=== PATIENT | male | born 1955 | race Caucasian/White ===

== ENCOUNTER → 2017-03-25 13:51 | Outpatient (CLI) | payer MEDICAID, SELFPAY ==
--- NOTE | 2017-03-25 13:54 | RAD_ITS ---
STUDY: X-RAY - PELVIS AND LEFT HIP REASON FOR EXAM: Male, 61 years old. Follow-up proximal femoral fracture. TECHNIQUE: Radiological exam, hip, unilateral, with pelvis when performed; 2 or 3 views. COMPARISON: Prior pelvis and hip films of February 11, 2017 FINDINGS: There is a non-specific bowel gas pattern. Normal visualized soft tissue structures. Normal bilateral iliac wings, sacroiliac joints and visualized sacrum. Normal bilateral superior and inferior pubic rami. Normal pubic symphysis. Normal bilateral ischial tuberosities. No change in the alignment of the fracture of the proximal femoral diaphysis and lesser trochanter. Increasing callus across the fracture site. The femoral head and neck lag screw and intramedullary karla are unchanged in position and appearance with no migration or displacement of the hardware which is included in the field to the level of the distal femur. The femoral head remains normal in appearance and located. RAD/Hip 2-3 Views with Pelvis IMPRESSION: Healing proximal femoral fracture involving the proximal diaphysis and lesser trochanter stabilized with hardware as described above. Alignment is anatomic and remains unchanged. There is no migration or disruption of the hardware which is completely included in the [id number]. Electronically Signed: Lilibeth Mack MD at 22:26 EST , Service support ,
== END ==
PROVIDERS: Visit Provider Orthopaedic Surgery
DX: S72.142A Displaced intertrochanteric fracture of left femur, initial encounter for closed fracture (principal); X58.XXXA Exposure to other specified factors, initial encounter
CPT/HCPCS: 73502